=== PATIENT | female | born 1940 | race Caucasian/White ===

== ENCOUNTER 2019-01-12 05:20 | Inpatient (IN) ==
--- NOTE | 2019-01-05 08:40 | EKG Report ---
Test Performed on : 01/05/2019 08:20:33 AM Test Reason : PAT Blood Pressure : / mmHG Vent. Rate : 065 BPM Atrial Rate : 065 BPM P-R Int : 134 ms QRS Dur : 092 ms QT Int : 410 ms P-R-T Axes : 026 024 064 degrees QTc Int : 426 ms Normal sinus rhythm. Normal ECG When compared with ECG of 13-JUN-2015 18:25, premature atrial complexes. are no longer present Nonspecific T wave abnormality no longer evident in Lateral leads Confirmed by Barak Grimes MD ([id number]) on 01/05/2019 12:02:51 PM
[2019-01-05 08:51] LABS: URINE SOURCE CLEAN CATCH
[2019-01-05 09:13] LABS: BASO# 0.04 X1000 (0.0-0.2); BASO% 0.4 % (0.0-0.8); EOS# 0.83 X1000 (0.0-0.7); EOS% 8.9 % (0.0-10.0); HEMOGLOBIN 14.3 g/dL (12.0-16.0); IMM GRAN# 0.02 X1000 (0.0-0.04); IMM GRAN% 0.2 % (0.0-0.5); LYMPH# 2.29 X1000 (1.2-3.4); LYMPH% 24.4 % (20.5-51.1); MCH 29.3 PG (27-31); MCHC 31.8 g/dL (33-37); MCV 92.2 FL (81-99); MONO# 0.99 X1000 (0.11-0.59); MONO% 10.6 % (1.7-9.3); MPV 10.3 FL (7.4-10.4); NEUT% 55.5 % (42.2-75.2); PLT 248 X1000 (130-400); RBC 4.88 XMIL (4.2-5.4); RDW 13.4 % (11.5-14.5); WBC 9.37 X1000 (4.8-10.8)
[2019-01-05 09:16] LABS: BILIRUBIN URINE NEGATIVE (NEGATIVE); BLOOD URINE NEGATIVE (NEGATIVE); COLOR YELLOW; GLUCOSE URINE NEGATIVE (NEGATIVE); KETONE URINE NEGATIVE (NEGATIVE); LEUKOCYTES URINE LARGE (NEGATIVE); NITRITE URINE POSITIVE (NEGATIVE); PH URINE 5.5; PROTEIN URINE NEGATIVE (NEGATIVE); SP GRAVITY URINE 1.011; TURBIDITY URINE CLEAR (CLEAR); UROBILINOGEN URINE NORMAL (NORMAL)
[2019-01-05 09:19] LABS: UR EPITHELIAL CELLS <10 /HPF (<10); URINE BACTERIA 2+ /HPF; URINE RBC <10 /HPF (<10)
[2019-01-05 09:21] LABS: INR 0.97
[2019-01-05 09:26] LABS: HEMOGLOBIN A1C 5.3 % (4.8-6.0)
[2019-01-05 09:32] LABS: CALCIUM 9.8 mg/dL (8.8-10.2); CREATININE 1.6 mg/dL (0.5-0.9); POTASSIUM 4.5 mmol/L (3.5-5.1)
[2019-01-12] MEDS ORDERED: REGLAN ONE (05:47)
[2019-01-12] MEDS ORDERED: CELEBREX ONE (05:47)
[2019-01-12] MEDS ORDERED: KEFZOL 1 GM/D5W 1 GM/50 ML IVPB ONE (05:47)
[2019-01-12] MEDS ORDERED: PEPCID ONE (05:47)
[2019-01-12] MEDS ORDERED: LYRICA ONE (05:47)
[2019-01-12] MEDS ORDERED: COLACE ONE (05:47)
[2019-01-12] MEDS ORDERED: LR 1,000 ML ONE (05:48)
[2019-01-12] MEDS ORDERED: CYKLOKAPRON 1,000 MG/NS 1,000 MG/100 ML IVPB ONE (06:28)
[2019-01-12] MEDS ORDERED: SENSORCAINE 0.25%/EPI 1:200,000 ONE (06:28)
[2019-01-12] MEDS ORDERED: TORADOL ONE (06:28)
[2019-01-12] MEDS ORDERED: SODIUM CHLORIDE 0.9% ONE (06:28)
[2019-01-12] MEDS ORDERED: DURAMORPH ONE (06:28)
[2019-01-12] MEDS ORDERED: NEOSPORIN G.U. IRRIGANT ONE (06:29)
[2019-01-12] MEDS ORDERED: EXPAREL 1.3% ONE (06:29)
[2019-01-12] MEDS ORDERED: DIPRIVAN 1% 500 MG/50 ML BOTTLE ONE (06:36)
[2019-01-12] MEDS ORDERED: FENTANYL ONE (07:00)
[2019-01-12] MEDS ORDERED: VANCOMYCIN ONE (07:07)
[2019-01-12] MEDS ORDERED: DECADRON ONE (07:30)
[2019-01-12] MEDS ORDERED: ZOFRAN ONE (07:30)
[2019-01-12] MEDS ORDERED: OFIRMEV 1000 MG/ISOTONIC SOLN 1,000 MG/100 ML BOTTLE ONE (07:30)
[2019-01-12 07:44] LABS: URINE SOURCE CATH
[2019-01-12 07:57] LABS: BILIRUBIN URINE NEGATIVE (NEGATIVE); BLOOD URINE NEGATIVE (NEGATIVE); COLOR YELLOW; GLUCOSE URINE NEGATIVE (NEGATIVE); KETONE URINE NEGATIVE (NEGATIVE); LEUKOCYTES URINE MODERATE (NEGATIVE); NITRITE URINE POSITIVE (NEGATIVE); PROTEIN URINE NEGATIVE (NEGATIVE); SP GRAVITY URINE 1.015; TURBIDITY URINE CLEAR (CLEAR); UROBILINOGEN URINE NORMAL (NORMAL)
[2019-01-12 07:58] LABS: UR EPITHELIAL CELLS <10 /HPF (<10); URINE BACTERIA 4+ /HPF; URINE RBC <10 /HPF (<10); URINE WBC <10 /HPF (<10)
[2019-01-12] MEDS ORDERED: NS 1,000 ML ONE (08:58)
--- NOTE | 2019-01-12 09:50 | Diag Imaging Result Doc PS360 ---
KNEE 1-2 VIEWS-RIGHT - 01/12/2019 INDICATION: post op TECHNIQUE: Two views COMPARISON: 11/04/2012 FINDINGS: There has been right total knee arthroplasty. Alignment is anatomic. No hardware fracture or loosening. IMPRESSION: No complication. Electronically signed by Jose Enrique Brown 01/12/2019 9:48 AM
[2019-01-12] MEDS ORDERED: NITROGLYCERIN SL PRN (10:22)
[2019-01-12] MEDS ORDERED: MORPHINE IV PRN ×3 (10:30)
[2019-01-12] MEDS ORDERED: ZOFRAN PO PRN (10:30)
[2019-01-12] MEDS: TYLENOL PO SCH ×2 (13:24→20:27)
[2019-01-12] MEDS ORDERED: DILAUDID IV PRN ×2 (16:39)
[2019-01-12] MEDS: KEFZOL 1 GM/D5W 1 GM/50 ML IVPB IV SCH ×2 (16:43→23:20)
[2019-01-12] MEDS: NS 1,000 ML IV SCH (16:43)
[2019-01-12] MEDS: TEARISOL OPH SOLUTION BOTH EYES SCH ×2 (17:09→21:00)
[2019-01-12] MEDS ORDERED: PNEUMOVAX 23 IM ONE (18:24)
--- NOTE | 2019-01-12 19:18 | OPERATIVE NOTE ---
PROCEDURE DATE: 01/12/2019 PREOPERATIVE DIAGNOSIS: Degenerative osteoarthritis of the right knee. POSTOPERATIVE DIAGNOSIS: Degenerative osteoarthritis of the right knee. PROCEDURES: Right total knee arthroplasty with DePuy Attune size 4 narrow posterior stabilized femur, size 4 tibial tray, a 5 mm rotating platform tibial insert, 32 mm medialized anatomic patella. SURGEONS: Dr. Faye. 1ST JUNIOR SALES REPRESENTATIVE: Bing Gonzalez who was necessary for proper retraction and manipulation of the extremity during the case and improved efficiency. SECOND JUNIOR SALES REPRESENTATIVE: Juan Daniel Snow RN. ANESTHESIA: Spinal. IV FLUIDS: 1000 mL lactated Ringer's. ESTIMATED BLOOD LOSS: 25 mL. TOURNIQUET TIME: 75 minutes at 300 mmHg. COMPLICATIONS: None. INDICATION: The patient is a pleasant 78-year-old female with a chronic history of pain over in her right knee. Her pain has progressed to affect her activities of daily living. X-rays did reveal significant degenerative arthritic changes. A recommendation to proceed with right total knee arthroplasty was offered. Risks and benefits of surgery were explained, including the risks of anesthesia, , bleeding, infection, failure to relieve pain, postop stiffness, nerve injury, blood clots, and other imponderables. All questions answered. The patient and family wished to proceed with surgery. DETAILS OF OPERATION: Patient was taken to the operating room and placed supine on the operating table. Once adequate anesthesia was obtained, patient's right lower extremity was subsequently prepped and draped in usual sterile fashion. Esmarch was used to exsanguinate the right lower extremity. The tourniquet was inflated to 300 mmHg. A standard anterior incision made with skin knife. Medial and lateral skin envelopes were developed. The patella fat pad was excised. Retractors were then placed. Approximately 1 cm anterior to the PCL insertion, a starting reamer was passed. Intramedullary guide with a distal femoral cutting block was pinned in position. Distal femoral cut was then performed. A sizing block was placed and measured to a size 4. Corresponding pins were placed. A size 4 cutting block was then placed in position. Anterior, posterior, chamfer cuts were then made. Attention then turned to the proximal tibia where further resection of the ACL and PCL was performed. Using the extramedullary guide, the proximal tibia cutting block was pinned in position. Had good alignment confirmed with the alignment sunitha. The proximal tibia was then resected. Medial and lateral menisci were excised. A curved osteotome was used to remove post osteophyte off the distal femur. A spacer block was then placed and good soft tissue balance in both flexion extension. Attention then turned to the proximal tibia where a size 4 tibial tray appeared be the correct size. This was pinned in position. A box cutting guide was then pinned on the distal femur and a box cut was performed. A trial femoral component was then placed. Two lug holes were drilled. A trial tibial insert was then placed and a good soft tissue balancing. Patella everted and resected in a standard fashion. A 32 appeared to be the correct size. Corresponding holes were drilled. A trial patella component was then placed and good patellofemoral tracking. The trial components were then removed. Copious irrigation was then performed with antibiotic pulsatile lavage while vancomycin was mixed with cement on the back table. Sequential cementing was then performed, first with the tibial tray and excess cement was removed with a [place] followed by the femoral component and excess cement with a [place], followed by the trial tibial insert in full extension and axial loading was maintained while cement cured. The patella was cemented in a standard fashion. Patella clamp was placed. While cement was curing, Exparel was placed in deep soft tissue, as well as the subcutaneous tissue. After cement had cured peripheral cement was removed with a small osteotome. The 5 mm rotating platform tibial insert appeared to the correct size. The trial insert was removed. Exparel was placed deep posterior capsule. This was followed by copious irrigation once again with antibiotic pulsatile lavage. The 5 mm rotating platform tibial insert was then placed. The knee was then carried through range of motion. Good range of motion, good soft tissue balancing and good patellofemoral tracking. A 1/8 Hemovac drain was placed and was not sewn in. Copious irrigation was then performed once again with antibiotic pulsatile lavage. Number 1 Vicryl was used to repair the arthrotomy followed by 2-0 Vicryl to repair the subcutaneous tissue and skin leonarda. Sterile 4x4s, Webril, cryo unit, Hector wrap the right lower extremity. The patient tolerated the procedure well and was transferred to the recovery room in stable condition. cc: Jean Faye MD
[2019-01-12] MEDS: PERIDEX MT SCH (20:26)
[2019-01-12] MEDS: BENTYL PO SCH (20:27)
[2019-01-12] MEDS: LOPRESSOR PO SCH (20:27)
[2019-01-12] MEDS: MAG-OX PO SCH (20:27)
[2019-01-13] MEDS: NS 1,000 ML IV SCH ×2 (01:30→13:07)
[2019-01-13] MEDS: TYLENOL PO SCH ×4 (03:18→20:09)
[2019-01-13] MEDS: XARELTO PO SCH (05:14)
[2019-01-13] MEDS: SYNTHROID PO SCH ×3 (05:14→08:10)
[2019-01-13 05:43] LABS: HEMOGLOBIN 12.3 g/dL (12.0-16.0)
[2019-01-13 05:51] LABS: CALCIUM 8.2 mg/dL (8.8-10.2); CREATININE 1.7 mg/dL (0.5-0.9); POTASSIUM 4.8 mmol/L (3.5-5.1)
[2019-01-13] MEDS: APRESOLINE PO SCH (08:10)
[2019-01-13] MEDS: PERIDEX MT SCH ×2 (08:10→20:09)
[2019-01-13] MEDS: METAMUCIL PO SCH (08:10)
[2019-01-13] MEDS: MAG-OX PO SCH ×2 (08:10→20:09)
[2019-01-13] MEDS: BENTYL PO SCH ×2 (08:10→20:09)
[2019-01-13] MEDS: LASIX PO SCH (08:10)
[2019-01-13] MEDS: NEXIUM PO SCH (08:10)
[2019-01-13] MEDS: OXY IR PO PRN ×3 (08:11→17:48)
[2019-01-13] MEDS: LOPRESSOR PO SCH ×2 (09:07→20:08)
[2019-01-13] MEDS: STRATTERA PO SCH (11:00)
[2019-01-13] MEDS: TEARISOL OPH SOLUTION BOTH EYES SCH ×4 (11:01→20:08)
--- NOTE | 2019-01-13 12:23 | Diag Imaging Result Doc PS360 ---
EXAM: CHEST-1 VIEW INDICATION: rehab TECHNIQUE: One view COMPARISON: 06/14/2015 FINDINGS: There are bone anchors at the left humeral head and there has been a prior right shoulder arthroplasty, stable. There is suggestion of minimal scarring versus atelectasis at the left lung base. The lungs are grossly clear, otherwise. There is no discrete pleural fluid collection or pneumothorax. The cardiomediastinal silhouette and central vasculature are grossly unremarkable. IMPRESSION: Minimal scarring versus atelectasis at the left lung base. No definite acute pathology, otherwise. Electronically signed by Jaspal Uriarte 01/13/2019 12:20 PM
--- NOTE | 2019-01-13 13:18 | ORTHOPAEDICS PROGRESS NOTE ---
DATE: 01/13/2019 SUBJECTIVE: The patient is a pleasant 78-year-old female who is 1 day status post right total knee arthroplasty. She is currently resting comfortably. PHYSICAL EXAMINATION: The patient's right lower extremity. The wound looked good. There are no signs or symptoms of infection. Her calf is soft. She has active dorsiflexion and plantar flexion. She is neurovascularly intact distally. Her hemoglobin is 12.3, hematocrit 39.0. IMPRESSION: Postoperative day #1 status post right total knee arthroplasty. PLAN: At this point, begin mobilization with physical therapy. [facility] has been consulted for discharge planning. cc: Jean Faye MD
[2019-01-14] MEDS: TYLENOL PO SCH ×5 (02:56→22:42)
[2019-01-14] MEDS: NS 1,000 ML IV SCH ×2 (02:57→16:59)
[2019-01-14] MEDS: OXY IR PO PRN (03:57)
[2019-01-14] MEDS: XARELTO PO SCH (05:07)
[2019-01-14 06:13] LABS: HEMATOCRIT 35.6 % (37.0-47.0); HEMOGLOBIN 11.2 g/dL (12.0-16.0)
[2019-01-14] MEDS ORDERED: OXY IR PO PRN ×2 (06:13)
--- NOTE | 2019-01-14 06:58 | DISCHARGE SUMMARY ---
ADMISSION DATE: 01/12/2019 DISCHARGE DATE: 01/15/2019 ADMITTING DIAGNOSIS: Urinary tract infection. DISCHARGE DIAGNOSES: 1. Urinary tract infection. 2. Status post right total knee arthroplasty. BRIEF HISTORY: The patient is a pleasant 78-year-old female with a chronic history of pain and discomfort in the right knee. Pain has progressed to affect her activities of daily living. X- rays revealed significant degenerative osteoarthritis. The recommendation to proceed with right total knee arthroplasty was offered. Risks, benefits were discussed and all questions were answered. The patient wished to proceed with surgical management. BRIEF HISTORY: Patient was admitted to the hospital and underwent right total knee arthroplasty. Urine culture was obtained at the time of her admission and under application of the [place]arden on the day of admission and did grow gram-negative rods consistent with a urinary tract infection. She underwent right total knee arthroplasty. She tolerated the procedure well, had an uneventful postoperative course. By postoperative day #2, patient was afebrile, tolerating a regular diet, wound looked good. There were no signs or symptoms of infection. The patient was slowly mobilized with physical therapy, ambulating approximately 50 feet. It was felt the patient would benefit from inpatient rehabilitation. The patient and family were agreeable to this. Postoperative day #2 her hemoglobin and hematocrit had stabilized to 11.2 and 35.6. Also, a urine culture was obtained on day of admission and did grow E. coli consistent with a urinary tract infection prior to admission. Will place patient on Bactrim DS for 10 days. DISCHARGE MEDICATIONS: OxyIR 5 mg 1 p.o. q.4-6 hours p.r.n. pain. Bactrim DS for 10 days. For remaining medications, see please see medication list. DISCHARGE INSTRUCTIONS: 1. The patient will be discharged to [facility] for inpatient rehabilitation. 2. Consult Physical Therapy for gait training with full weightbearing right lower extremity and range of motion exercises per total knee protocol. 3. Discontinue leonarda in 10 days. 4. Follow up in the office in 3 to 4 weeks. cc: Jean Faye MD MTDD
[2019-01-14] MEDS: METAMUCIL PO SCH (10:52)
[2019-01-14] MEDS: STRATTERA PO SCH (10:52)
[2019-01-14] MEDS: PERIDEX MT SCH ×2 (10:52→22:43)
[2019-01-14] MEDS: SEPTRA DS PO SCH ×2 (10:52→22:43)
[2019-01-14] MEDS: TEARISOL OPH SOLUTION BOTH EYES SCH ×4 (10:53→22:42)
[2019-01-14] MEDS: LOPRESSOR PO SCH ×2 (10:54→22:42)
[2019-01-14] MEDS: LASIX PO SCH (10:54)
[2019-01-14] MEDS: NEXIUM PO SCH (10:54)
[2019-01-14] MEDS: SYNTHROID PO SCH (10:54)
[2019-01-14] MEDS: MAG-OX PO SCH ×2 (10:54→22:42)
[2019-01-14] MEDS: APRESOLINE PO SCH (10:54)
[2019-01-14] MEDS: BENTYL PO SCH ×2 (10:55→22:42)
--- NOTE | 2019-01-14 14:25 | ORTHOPAEDICS PROGRESS NOTE ---
DATE: 01/14/2019 SUBJECTIVE: The patient is a pleasant 78-year-old female who is 2 days status post right total knee arthroplasty. She is currently resting comfortably. PHYSICAL EXAMINATION: On physical examination, the patient's right lower extremity, her wound looks good. There are no signs or symptoms of infection. Her calf is soft. She has active dorsiflexion and plantar flexion. She is neurovascularly distally. LABORATORY DATA: Her hemoglobin is 11.2 hematocrit 35.6. IMPRESSION: Postoperative day number 2, status post right total knee arthroplasty. PLAN: At this point, it is felt that the patient would benefit from inpatient rehabilitation, and the patient and family were agreeable to this. We will plan on discharging to [facility] tomorrow. cc: Jean Faye MD
[2019-01-14] MEDS: NORCO-5 PO PRN ×2 (15:36→22:40)
[2019-01-15] MEDS: TYLENOL PO SCH (05:39)
[2019-01-15] MEDS: XARELTO PO SCH (05:39)
[2019-01-15] MEDS: NS 1,000 ML IV SCH (05:41)
[2019-01-15 07:06] LABS: HEMATOCRIT 34.1 % (37.0-47.0); HEMOGLOBIN 10.7 g/dL (12.0-16.0)
[2019-01-15 07:53] VITALS: BP 163/71
[2019-01-15] MEDS: LASIX PO SCH (08:18)
[2019-01-15] MEDS: METAMUCIL PO SCH (08:18)
[2019-01-15] MEDS: APRESOLINE PO SCH (08:18)
[2019-01-15] MEDS: BENTYL PO SCH (08:18)
[2019-01-15] MEDS: LOPRESSOR PO SCH (08:19)
[2019-01-15] MEDS: SEPTRA DS PO SCH (08:19)
[2019-01-15] MEDS: STRATTERA PO SCH (08:19)
[2019-01-15] MEDS: NEXIUM PO SCH (08:19)
[2019-01-15] MEDS: TEARISOL OPH SOLUTION BOTH EYES SCH (08:19)
[2019-01-15] MEDS: SYNTHROID PO SCH (08:19)
[2019-01-15] MEDS: MAG-OX PO SCH (08:19)
[2019-01-15] MEDS: PERIDEX MT SCH (08:19)
--- NOTE | 2019-01-15 14:40 | ORTHOPAEDICS PROGRESS NOTE ---
DATE: 01/15/2019 SUBJECTIVE: Ms. Valdez lying in bed this morning. Pain is controlled. OBJECTIVE: Right lower extremity exam, her dressing is clean, dry, and intact. Knee is just a little bit swollen. There is no drainage. She is neurovascularly intact right lower extremity. ASSESSMENT: Status post right total knee arthroplasty per Dr. Faye. PLAN: Ms. Valdez will be discharged to [facility] today. She is weight bear as tolerated right lower extremity and she will follow up with Dr. Faye in the next 2 weeks. cc: MD Jean Lauren MD
== END 2019-01-15 10:33 | DRG 470 ==
LOC: 4N 05:20 → OR 05:20 → OBSVTOIN 07:25
PROVIDERS: ADMIT Orthopaedic Surgery Adult Reconstructive Orthopaedic Surgery; ATTEND Orthopaedic Surgery Adult Reconstructive Orthopaedic Surgery